=== PATIENT | female | born 1995 | race Caucasian/White ===

== ENCOUNTER 2017-03-26 13:03 | Outpatient (CLI) | payer BC ==
--- NOTE | 2017-03-26 15:44 | ULT ---
THYROID SONOGRAM: History: Neck pain. Thyroid lump. FINDINGS: The right thyroid lobe is 4.3 cm in length and has a heterogeneous echotexture. A 0.6 cm hypoechoic nodule is present deep within the midportion. The isthmus is 0.3 cm in thickness. The left thyroid lobe is 4.2 cm in length. A circumscribed 0.6 cm hyperechoic lesion is noted within the midportion of the inferior pole. At the submental level in region of pain, a lobular hypoechoic lesion within essentric hilum is 1.4 x 0.9 cm diameter. Additional slightly smaller lymph nodes are also present. IMPRESSION: 1. Reactive appearing submental lymph nodes. 2. Tiny nonspecific bilateral thyroid nodules. POS: [id number]
== END 2017-03-26 13:04 | disposition home or self-care (01) ==
LOC: NAV ULT 13:03
PROVIDERS: ATTEND Family Medicine
DX: E01.0 Iodine-deficiency related diffuse (endemic) goiter (principal); E04.2 Nontoxic multinodular goiter
CPT/HCPCS: 76536

== ENCOUNTER 2017-03-29 09:55 | Outpatient (CLI) | payer BC ==
[2017-03-29 19:39] LABS: Free T4 (Free Thyroxine) 1.05 ng/dL (0.70-1.48)
[2017-03-29 19:40] LABS: Thyroid Stimulating Hormone 4.8858 uIU/mL (0.35-4.94)
[2017-03-31 09:14] LABS: Thyroglobulin Antibody by RIA Less than 1.0 IU/mL (0.0-0.9)
== END 2017-03-29 09:56 | disposition home or self-care (01) ==
LOC: NAV LABSP 09:55
PROVIDERS: ATTEND Otolaryngology Plastic Surgery within the Head & Neck
DX: E03.9 Hypothyroidism, unspecified (principal); R22.1 Localized swelling, mass and lump, neck
CPT/HCPCS: 36415; 84439; 84443; 84481; 86376; 86800